=== PATIENT | male | born 1955 ===

== ENCOUNTER 2022-10-22 10:24 | Outpatient (CLI) | payer MEDICARE, BC, SELFPAY | END 2022-10-22 10:25 | disposition home or self-care (01) | PROVIDERS: PCP Emergency Medicine; Visit Provider Emergency Medicine | DX: Z00.00 Encounter for general adult medical examination without abnormal findings (principal); D64.9 Anemia, unspecified; Z13.6 Encounter for screening for cardiovascular disorders; Z12.5 Encounter for screening for malignant neoplasm of prostate; Z13.1 Encounter for screening for diabetes mellitus | CPT/HCPCS: 80048; 80061; 84153 ==